=== PATIENT | male | born 1930 | race Hispanic/Latino ===

== ENCOUNTER 2017-03-09 11:59 | Emergency (ER) | payer MEDICARE ==
[2017-03-09 12:09] VITALS: BMI 21.6
[2017-03-09 12:14] VITALS: O2SAT 96
[2017-03-09] MEDS ORDERED: Bacitracin 500 Units/gm Oint Foilpak UD TOP ONE (12:24)
[2017-03-09] MEDS ORDERED: Bacitracin 500 Units/gm Oint Foilpak UD ONE (12:29)
--- NOTE | 2017-03-09 12:58 | C.PDOC ---
History Of Present Illness 86 year old patient is brought to the ED by ambulance complaining of right leg pain after he hit his leg on a treadmill just prior to arrival. Patient states he was working out at the gym on a treadmill when it became too fast for him to keep up with the pace. Patient denies any head injury, abdominal pain, numbness , weakness, abdominal pain, nausea, vomiting, chest pain, or shortness of breath. Patient states he feels fine. Time Seen by Provider: 03/09/17 12:17 Chief Complaint (Nursing): Lower Extremity Problem/Injury History Per: Patient History/Exam Limitations: no limitations Onset/Duration Of Symptoms: Mins (just prior to arrival) Current Symptoms Are (Timing): Still Present Severity: Mild Pain Scale Rating Of: 3 Recent travel outside of the [place]: No Past Medical History Reviewed: Historical Data, Nursing Documentation, Vital Signs Vital Signs: Last Vital Signs Temp 98.0 F 03/09/17 13:04 Pulse 79 03/09/17 13:04 Resp 16 03/09/17 13:04 BP 156/88 H 03/09/17 13:04 Pulse Ox 96 03/09/17 14:08 Family History: States: Unknown Family Hx - Social History Hx Alcohol Use: Yes Hx Substance Use: No - Immunization History Hx Tetanus Toxoid Vaccination: No Hx Influenza Vaccination: No Hx Pneumococcal Vaccination: No Review Of Systems Except As Marked, All Systems Reviewed And Found Negative. Constitutional: Negative for: Fever Cardiovascular: Negative for: Chest Pain Respiratory: Negative for: Shortness of Breath Gastrointestinal: Negative for: Nausea, Vomiting, Abdominal Pain Musculoskeletal: Positive for: Leg Pain (right) Neurological: Negative for: Weakness, Numbness, Other (head injury) Physical Exam - Physical Exam Appears: Non-toxic, No Acute Distress Skin: Warm, Dry Head: Atraumatic, Normacephalic Eye(s): bilateral: Normal Inspection, EOMI Ear(s): Bilateral: Other (hearing impaired) Nose: Normal Neck: Normal ROM, Supple Chest: Symmetrical Cardiovascular: Rhythm Regular Respiratory: Normal Breath Sounds, No Accessory Muscle Use Gastrointestinal/Abdominal: Soft, No Tenderness Back: Normal Inspection Extremity: Normal ROM, No Calf Tenderness, Capillary Refill (<2 seconds), No Deformity, No Swelling, Other (right lower leg: large anterior contusion with 6 cm of superficial skin avulsion; superficial abrasions to bilateral knees) Pulses: Left Dorsalis Pedis: Normal, Right Dorsalis Pedis: Normal Neurological/Psych: Oriented x3, Normal Speech, Normal Cognition, Normal Motor, Normal Sensation Gait: Steady ED Course And Treatment O2 Sat by Pulse Oximetry: 96 (RA) Pulse Ox Interpretation: Normal - Other Rad right tibia/fibula x-ray X-Ray: Interpreted by Me, Viewed By Me Interpretation: no fractures or dislocations Progress Note: Plan: -Tylenol, Bacitracin. -Right Tibia/Fibula x-ray. - Reassess and disposition. Wound was cleansed and dressed by the RN. Bacitracin was applied. Skin glue was used. On reassessment, patient is resting comfortably, and is in no acute distress. Patient is requesting to go outside to smoke a cigarette. There is no pain on ambulation. Patient was instructed to follow up with physician/clinic in 1-2 days for further evaluation. Return if symptoms worsen. Case discussed with amy Hoyos plan and discharge. Disposition - Disposition Disposition: HOME/ ROUTINE Disposition Time: 12:57 Condition: STABLE Additional Instructions: Rest, ice and elevate the area. Follow up with your doctor in 1-2 days. Return to ER if symptoms persist or worsen. Instructions: Contusion in Adults (ED) - Clinical Impression Clinical Impression: Contusion of leg - PA / PRODUCTION INTERNSHIP / Resident Statement MD/DO has reviewed & agrees with the documentation as recorded. - Scribe Statement The provider has reviewed the documentation as recorded by the Scribe Lala Solis All medical record entries made by the Scribe were at my direction and personally dictated by me. I have reviewed the chart and agree that the record accurately reflects my personal performance of the history, physical exam, medical decision making, and the department course for this patient. I have also personally directed, reviewed, and agree with the discharge instructions and disposition.
--- NOTE | 2017-03-09 13:02 | RAD ---
PROCEDURE: Radiographs of the right tibia and fibula. HISTORY: trauma COMPARISON: None available. TECHNIQUE: Frontal and lateral views obtained. FINDINGS: BONES: No acute displaced fracture. JOINT SPACES: No dislocation. OTHER FINDINGS: Soft tissues appear unremarkable. Vascular calcifications. No evidence of radiopaque foreign body. IMPRESSION: No acute displaced fracture, dislocation, or significant joint effusion identified. If symptoms persist, or if there is continued clinical concern, x-ray follow-up in 7-10 days should be considered.
[2017-03-09 13:05] VITALS: BP 156/88; PULSE 79; RESP 16; TEMP 98
== END 2017-03-09 13:05 | disposition home or self-care (01) ==
LOC: C.ER 11:59
DX: S80.11XA Contusion of right lower leg, initial encounter (principal); S80.212A Abrasion, left knee, initial encounter; S80.211A Abrasion, right knee, initial encounter; W22.8XXA Striking against or struck by other objects, initial encounter; Y93.79 Activity, other specified sports and athletics; Y92.39 Other specified sports and athletic area as the place of occurrence of the external cause

== ENCOUNTER 2017-07-21 13:27 | Emergency (ER) | payer MEDICARE ==
[2017-07-21 13:27] VITALS: BMI 21.6
[2017-07-21 13:57] VITALS: BP 175/74; PULSE 82; TEMP 98.1; O2SAT 95
--- NOTE | 2017-07-21 14:17 | C.PDOC ---
History Of Present Illness 86 y/o male brought to ED via EMS s/p falling at bank prior to arrival. As per ems patient was trying to pecan picker something from floor and fell head first to floor. At bedside patient is unsure how he fell and state he feels "great". Patient denies loc, vision changes, dizziness and is requesting immediate discharge. No other complaints at this time. - HPI Time Seen by Provider: 07/21/17 14:00 Chief Complaint (Nursing): Trauma History Per: Patient History/Exam Limitations: no limitations Onset/Duration Of Symptoms: Hrs Injury Occurred (Timing): Just Before Arrival Past Medical History Reviewed: Historical Data, Nursing Documentation, Vital Signs Vital Signs: Last Vital Signs Temp 98.1 F 07/21/17 13:39 Pulse 82 07/21/17 13:39 Resp 18 07/21/17 14:27 BP 175/74 H 07/21/17 13:39 Pulse Ox 95 07/21/17 14:29 - Medical History PMH: HTN (no meds) Surgical History: No Surg Hx Family History: States: No Known Family Hx - Social History Hx Alcohol Use: Yes (used to drink a lot) Hx Substance Use: No - Immunization History Hx Tetanus Toxoid Vaccination: No Hx Influenza Vaccination: No Hx Pneumococcal Vaccination: No Review Of Systems Except As Marked, All Systems Reviewed And Found Negative. Eyes: Negative for: Vision Change Cardiovascular: Negative for: Chest Pain Respiratory: Negative for: Shortness of Breath Gastrointestinal: Negative for: Nausea, Vomiting Skin: Negative for: Rash Neurological: Negative for: Weakness, Numbness, Headache, Dizziness Physical Exam - Physical Exam Appears: Non-toxic, No Acute Distress Skin: Normal Color, Warm, Dry, No Rash, Other (abrasion to hands ) Head: Abrasion (to forehead) Eye(s): bilateral: Normal Inspection, PERRL, EOMI Oral Mucosa: Moist Neck: Normal ROM, Supple Chest: Symmetrical Cardiovascular: Rhythm Regular, No Murmur Respiratory: Normal Breath Sounds, No Rales, No Rhonchi, No Wheezing Gastrointestinal/Abdominal: Soft, No Tenderness, No Guarding, No Rebound Extremity: Normal ROM, Capillary Refill (<2 seconds) Neurological/Psych: Oriented x3, Normal Speech, Normal Cognition, Normal Motor, Normal Sensation ED Course And Treatment O2 Sat by Pulse Oximetry: 95 (RA) Pulse Ox Interpretation: Normal Against Medical Advice - AMA Patient Left Against Medical Advice: The patient declines admission to the hospital and wishes to leave the Emergency Department. This action is against my medical advice. This decision was made with informed refusal. The patient was told that admission to the hospital is necessary. Explanation of the reasons why were discussed. The risks of leaving were explained to the patient and include, but are not limited to, worsening of known or currently unknown conditions, permanent disability and from undiagnosed or untreated conditions. The patient has the capacity to make this informed decision and understands my explanation of the current medical problem and risks of leaving. The patient voluntarily accepts these risks and signed an AMA form documenting our conversation. The patient was given the opportunity to ask questions and reconsider. The patient was encouraged to return to the Emergency Department at any time for further care. Medical Decision Making Medical Decision Making: suspectd fall/r/o syncope- labs imaging pending upon itial assessment, pt seen ambulating in er, in nad, smiling. does not want any w/u. 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 - Scribe Statement The provider has reviewed the documentation as recorded by the Krystianibrajwinder Leung All medical record entries made by the Scribrajwinder were at my direction and personally dictated by me. I have reviewed the chart and agree that the record accurately reflects my personal performance of the history, physical exam, medical decision making, and the department course for this patient. I have also personally directed, reviewed, and agree with the discharge instructions and disposition.
--- NOTE | 2017-07-21 14:18 | C.PDOC ---
- HPI Time Seen by Provider: 07/21/17 14:00 Chief Complaint (Nursing): Trauma Past Medical History Vital Signs: Last Vital Signs Temp 98.1 F 07/21/17 13:39 Pulse 82 07/21/17 13:39 Resp 12 07/21/17 13:39 BP 175/74 H 07/21/17 13:39 Pulse Ox 95 07/21/17 13:39 - Medical History PMH: HTN (no meds) Family History: States: Unknown Family Hx - Social History Hx Alcohol Use: Yes (used to drink a lot) Hx Substance Use: No - Immunization History Hx Tetanus Toxoid Vaccination: No Hx Influenza Vaccination: No Hx Pneumococcal Vaccination: No ED Course And Treatment O2 Sat by Pulse Oximetry: 95 Disposition - Disposition Disposition: AGAINST MEDICAL ADVICE Disposition Time: 14:16 Condition: UNKNOWN Instructions: Head Injury (ED), Against Medical Advice (ED) Forms: [employer] (Chinese) - Clinical Impression Clinical Impression: Fall, Head injury, Left against medical advice
[2017-07-21 14:33] VITALS: RESP 18
== END 2017-07-21 14:30 | disposition left against medical advice (07) ==
LOC: C.ER 13:27
DX: S00.81XA Abrasion of other part of head, initial encounter (principal); W18.30XA Fall on same level, unspecified, initial encounter

== ENCOUNTER 2019-03-18 04:24 | Observation (INO) | payer MEDICARE ==
[2019-03-18 04:24] VITALS: BMI 21.6
--- NOTE | 2019-03-18 04:45 | C.PDOC ---
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 Patient reports he was not feeling well after drinking some juice. Denies head injury. - HPI Chief Complaint (Nursing): Dizziness/Lightheaded History Per: Patient History/Exam Limitations: no limitations Onset/Duration Of Symptoms: Mins Injury Occurred (Timing): Just Before Arrival Recent travel outside of the [place]: No Past Medical History Reviewed: Historical Data, Nursing Documentation, Vital Signs - Medical History PMH: HTN (no meds) Family History: States: Unknown Family Hx - Social History Hx Alcohol Use: Yes (used to drink a lot) Hx Substance Use: No - Immunization History Hx Tetanus Toxoid Vaccination: No Hx Influenza Vaccination: No Hx Pneumococcal Vaccination: No Review Of Systems Constitutional: Negative for: Fever, Chills Cardiovascular: Negative for: Chest Pain Respiratory: Negative for: Cough, Shortness of Breath Gastrointestinal: Negative for: Nausea, Vomiting Neurological: Negative for: Weakness, Numbness Physical Exam - Physical Exam Appears: Non-toxic Skin: Normal Color, Warm Head: Normacephalic, Other (Small abrasion with ecchymosis to right temporal area) Eye(s): bilateral: Normal Inspection, PERRL, EOMI Oral Mucosa: Moist Neck: Normal, No Midline Cervical Tenderness, No Paracervical Tenderness, Supple Chest: Symmetrical, No Tenderness Cardiovascular: Rhythm Regular Respiratory: Normal Breath Sounds, No Rales, No Rhonchi, No Wheezing Gastrointestinal/Abdominal: Soft, No Tenderness Extremity: Normal ROM (x4) Neurological/Psych: Oriented x3, Normal Speech, Normal Motor, Normal Sensation, Other (No focal deficit) ED Course And Treatment - Laboratory Results Result Diagrams: 03/18/19 05:20 03/18/19 05:20 ECG: Interpreted By Me, Viewed By Me ECG Rhythm: Sinus Rhythm ECG Interpretation: Normal, No Acute Changes Interpretation Of ECG: NSR, normal tracings, Rate From EC NIHSS Stroke Scale - Date/Time Evaluation Performed Date Performed: 03/18/19 Time Performed: 04:45 When Was NIHSS Performed: Baseline - How Severe is the Stoke Level of Consciousness: 0=Alert LOC to Questions: 0=Both comments correct LOC to commands: 0=Obeys both correctly Best Gaze: 0=Normal Visual: 0=No visual loss Facial: 0=Normal Motor Arm - Left: 0=No drift Motor Arm - Right: 0=No drift Motor Leg - Left: 0=No drift Motor Leg - Right: 0=No drift Limb Ataxia: 0=Absent Sensory: 0=Normal Best Language: 0=No aphasia Dysarthia: 0=Normal articulation Extinction & Inattention (Neglect): 0=Normal, no object Score: 0 Disposition Discussed With : Phil Dangelo Doctor Will See Patient In The: Hospital Counseled Patient/Family Regarding: Diagnosis - Disposition Disposition: HOSPITALIZED Disposition Time: 06:43 Condition: STABLE Forms: [employer] (Greenlandic) - POA Present On Arrival: None - Clinical Impression Clinical Impression: Syncope, Dizziness - Scribe Statement The provider has reviewed the documentation as recorded by the Scribe Anibal Doe All medical record entries made by the Krystianibrajwinder were at my direction and personally dictated by me. I have reviewed the chart and agree that the record accurately reflects my personal performance of the history, physical exam, medical decision making, and the department course for this patient. I have also personally directed, reviewed, and agree with the discharge instructions and disposition.
[2019-03-18] MEDS ORDERED: Sodium Chloride 0.9% 1,000 ML IV ONE ×2 (04:58→08:30)
[2019-03-18 05:29] LABS: ALB/GLOB RATIO 1.6 (1.0-2.1); ALBUMIN 4.5 g/dL (3.5-5.0); ALT/SGPT 28 U/L (21-72); AST/SGOT 46 U/L (17-59); BLOOD UREA NITROGEN 24 mg/dL (9-20); CALCIUM 9.2 mg/dl (8.6-10.4); GFR NON-AFRICAN AMERICAN > 60
[2019-03-18 05:33] LABS: BASO # 0.1 K/uL (0.0-0.2); BASO % 1.1 % (0.0-2.0); EOS # 0.4 K/uL (0.0-0.7); EOS % 3.9 % (0.0-4.0); HEMOGLOBIN 13.3 g/dL (12.0-18.0); LYMPH # 3.6 K/uL (1.0-4.3); LYMPH % 36.6 % (20.0-40.0); MEAN CELL VOLUME 89.5 fL (80.0-94.0); MEAN CORPUSCULAR HEMOGLOBIN 29.9 pg (27.0-31.0); MEAN CORPUSCULAR HGB CONC 33.3 g/dL (33.0-37.0); MEAN PLATELET VOLUME 8.7 fL (7.2-11.7); MONO # 0.7 K/uL (0.0-0.8); MONO % 7.5 % (0.0-10.0); NEUT % 50.9 % (50.0-75.0); RBC 4.46 Mil/uL (4.40-5.90); RED CELL DISTRIBUTION WIDTH 14.1 % (11.5-14.5); WHITE BLOOD COUNT 9.8 K/uL (4.8-10.8)
[2019-03-18 07:25] LABS: SQUAMOUS EPITHIAL < 1 /hpf (0-5); URINE BILIRUBIN NEGATIVE (NEGATIVE); URINE BLOOD NEGATIVE (NEGATIVE); URINE CLARITY Clear (Clear); URINE COLOR Yellow (YELLOW); URINE GLUCOSE (UA) NORMAL (Normal); URINE LEUKOCYTE ESTERASE NEG Leu/uL (Negative); URINE PROTEIN NEGATIVE (NEGATIVE); URINE UROBILINOGEN NORMAL mg/dL (0.2-1.0)
--- NOTE | 2019-03-18 07:25 | CP.PCM.HP ---
History of Present Illness - History of Present Illness History of Present Illness: PGY1 History and physical for Dr. Cotto This is an 88 erik old male with PMH of HTN, chronic lung disease ?COPD, [place], hx of falls, who presents to the ED s/p syncopal episode with fall earlier this morning. Pt is a poor historian. Pt reports feeling dizzy, unable to describe dizziness, and began feeling as if he was falling. He fell gradually onto his right side, and states that he did lose consciousness and hit his head. He was a woken by his landlord, who entered his home due to the noise made when he fell. Pt believes that he felt dizzy because he drank some bad tomato juice. He vomited twice after regaining consciousness, containing food material without blood. Pt denies fever, chills, chest pain, sob, bowel or bladder incontinence, visual changes, abdominal pain, diarrhea, hematuria, melena, hematochezia, neck pain, headache, back pain, hip pain, difficulty swallowing, slurred speech. Endorses right ankle pain since the fall, and some epigastric uneasiness. PMD: [place] on [address] [place] [address] in PMH: as above. Denies cardiac issues of history of stents. PSH: denies Meds: Inconsistent in using; "BP med, inhaled disc for lung, baby aspirin" Allx: NKDA SHx: Lives alone. Uses cane. greater than 50 pack year history. Prior EtOH use, unable to quantify how much, quit 2 years ago. Denies illicit drug use. Present on Admission - Present on Admission Any Indicators Present on Admission: No Review of Systems - Review of Systems All systems: reviewed and no additional remarkable complaints except (as per HPI) Past Patient History - Past Social History Smoking Status: Heavy Smoker > 10 Cigarettes Daily - CARDIAC Hx Hypertension: Yes (no meds) - HEENT Hx Deafness: Yes Other/Comment: hard of hearing - PSYCHIATRIC Hx Substance Use: No - SURGICAL HISTORY Hx Surgeries: No - ANESTHESIA Hx Anesthesia: No Meds Allergies/Adverse Reactions: Allergies Allergy/AdvReac Type Severity Reaction Status Date / Time No Known Allergies Allergy Verified 03/09/17 12:09 Physical Exam - Constitutional Appears: Non-toxic, No Acute Distress - Head Exam Head Exam: NORMOCEPHALIC Additional comments: (+) right maxillary bone contusion with abrasion; no active bleeding; nontender. No step off. - Eye Exam Eye Exam: EOMI Additional comments: (+) constricted pupils, reactive to light - ENT Exam ENT Exam: Mucous Membranes Dry - Neck Exam Neck exam: Negative for: Tenderness Additional comments: no neck tenderness, FROM (-) carotid bruit - Respiratory Exam Respiratory Exam: Decreased Breath Sounds. absent: Rales, Rhonchi, Wheezes, Respiratory Distress, Stridor - Cardiovascular Exam Cardiovascular Exam: REGULAR RHYTHM, +S1, +S2. absent: Tachycardia Additional comments: (-) rubs, gallops, murmurs - GI/Abdominal Exam GI & Abdominal Exam: Normal Bowel Sounds, Soft. absent: Distended, Firm, Guarding, Rebound, Rigid, Tenderness - Extremities Exam Extremities exam: Positive for: joint swelling (right ankle tenderness to palpation, decrease ROM secondary to pain, minimal swelling, no erythema/ecchymosis), normal capillary refill, pedal pulses present. Negative for: calf tenderness, pedal edema - Back Exam Back exam: NORMAL INSPECTION. absent: CVA tenderness (L), FULL ROM, vertebral tenderness - Neurological Exam Neurological exam: Alert, CN II-XII Intact, Oriented x3 Additional comments: Sensation intact and normal bilateral upper and lower extremities 5/5/ strength in bilateral upper and lower extremities Normal babinski reflex bilaterally - Psychiatric Exam Psychiatric exam: Normal Affect, Normal Mood - Skin Skin Exam: Dry, Normal Color, Warm Results - Vital Signs Recent Vital Signs: Last Vital Signs Temp 98.1 F 03/18/19 06:54 Pulse 77 03/18/19 06:54 Resp 18 03/18/19 06:54 BP 143/65 03/18/19 06:54 Pulse Ox 97 03/18/19 06:54 - Labs Result Diagrams: 03/18/19 05:20 03/18/19 05:20 Labs: Laboratory Results - last 24 hr 03/18/19 03/18/19 05:20 05:20 WBC 9.8 RBC 4.46 Hgb 13.3 Hct 39.9 MCV 89.5 MCH 29.9 MCHC 33.3 RDW 14.1 Plt Count 221 MPV 8.7 Neut % (Auto) 50.9 Lymph % (Auto) 36.6 [place] % (Auto) 7.5 Eos % (Auto) 3.9 Baso % (Auto) 1.1 Neut # (Auto) 5.0 Lymph # (Auto) 3.6 [place] # (Auto) 0.7 Eos # (Auto) 0.4 Baso # (Auto) 0.1 Sodium 138 Potassium 4.1 Chloride 102 Carbon Dioxide 27 Anion Gap 13 BUN 24 H Creatinine 1.0 Est GFR ( Amer) > 60 Est GFR (Non-Af Amer) > 60 Random Glucose 156 H Calcium 9.2 Total Bilirubin 0.3 AST 46 ALT 28 Alkaline Phosphatase 101 Troponin I 0.0820 Total Protein 7.2 Albumin 4.5 Globulin 2.7 Albumin/Globulin Ratio 1.6 Assessment & Plan - Assessment and Plan (Free Text) Assessment: This is an 88 erik old male with PMH of HTN, chronic lung disease (?COPD), [place], hx of falls, who presents to the ED s/p sycnopal episode with fall. Plan: Syncopal episode S/p fall Head CT prelim shows no acute intracranial abnormality. Chronic microvascular ischemic changes. Sinus mucosal disease. EKG shows NSR; no acute STTW changes Troponin x 1 is 0.0820; will trend x2 q6h Place on tele monitor UA is normal Fall precautions Neurochecks q4h F/u carotid doppler, echocardiogram F/u UDS F/u right ankle x-ray Decreased PO intake Cyber Special Agent referral NS at 50 mL/hr due to dehydration and poor PO intake Hx of HTN NO medication at this time due to syncopal episode ASA 81 mg PO daily F/u lipid panel, HgbA1c ?COPD CXR shows Biapical pleural thickening with upper lobe granulomatous changes. Mild diffuse increased interstitial lung markings. Mild patchy increased markings at the lung bases. Small nodular density at the right costophrenic angle may represent confluence of shadows with ribs and vessels. Small nodular density at the left lung base may represent vessel on end. Bilateral hilar prominence. Duones Q6 PRN sob PPx: Pepcid 20 mg PO daily SCDs, Lovenox 40 mg SC daily HHD, mechanicaly chopped PT/OT Palliative care for POLST SW/CM for frequent falls Case discussed with Dr. Yadiel Chandler PGY1
--- NOTE | 2019-03-18 08:28 | CT ---
Date of service: 03/18/2019 PROCEDURE: CT HEAD WITHOUT CONTRAST. HISTORY: Headache COMPARISON: None available. TECHNIQUE: Axial computed tomography images were obtained through the head/brain without intravenous contrast. Radiation dose: Total exam DLP = 955.64 mGy-cm. This CT exam was performed using one or more of the following dose reduction techniques: Automated exposure control, adjustment of the mA and/or kV according to patient size, and/or use of iterative reconstruction technique. FINDINGS: HEMORRHAGE: No intracranial hemorrhage. BRAIN: No mass effect or edema. Scattered focal lucencies in the subcortical and periventricular white matter suggestive for chronic microvascular ischemic change. Diffuse generalized parenchymal atrophy. Punctate right basal ganglia calcification. VENTRICLES: Unremarkable. No hydrocephalus. CALVARIUM: Unremarkable. PARANASAL SINUSES: Moderate mucosal thickening of the ethmoid air cells. MASTOID AIR CELLS: Unremarkable as visualized. No inflammatory changes. OTHER FINDINGS: Intracranial arterial calcifications. IMPRESSION: No acute intracranial abnormality. Chronic microvascular ischemic changes. Sinus mucosal disease. If symptoms persists, consider correlation with MRI. A preliminary report was generated at 6:35 a.m. on 03/18/[address] Ethan Marquez from [email or web address].
--- NOTE | 2019-03-18 08:55 | RAD ---
Chest x-ray single frontal view HISTORY: Syncope. COMPARISON: 03/18/2019 FINDINGS: Biapical pleural thickening with upper lobe granulomatous changes. Mild diffuse increased interstitial lung markings. Mild patchy increased markings at the lung bases. Small nodular density at the right costophrenic angle may represent confluence of shadows with ribs and vessels. Small nodular density at the left lung base may represent vessel on end. Bilateral hilar prominence. Tortuous aorta. Heart size within normal limits. Degenerative changes in the spine and shoulders. IMPRESSION: Biapical pleural thickening with upper lobe granulomatous changes. Mild diffuse increased interstitial lung markings. Mild patchy increased markings at the lung bases. Small nodular density at the right costophrenic angle may represent confluence of shadows with ribs and vessels. Small nodular density at the left lung base may represent vessel on end. Bilateral hilar prominence.
[2019-03-18] MEDS ORDERED: Albuterol-Ipratrop 3 mg / 0.5 (3 ml) UD INH PRN (09:00)
[2019-03-18] MEDS ORDERED: Enoxaparin 40 mg Syringe SC SCH (10:00)
--- NOTE | 2019-03-18 10:59 | RAD ---
Date of service: 03/18/2019 PROCEDURE: Right Ankle Radiographs. HISTORY: s/p fall, pain and swelling COMPARISON: None available. TECHNIQUE: 3 views obtained. FINDINGS: BONES: No fracture. Plantar calcaneal spur noted. JOINTS: Normal. No osteoarthritis. Ankle mortise maintained. Talar dome intact SOFT TISSUES: Normal. OTHER FINDINGS: None. IMPRESSION: Plantar calcaneal spur. No acute fracture.
[2019-03-18 11:09] LABS: BARBITURATES, UR NEGATIVE (NEGATIVE); BENZODIAZEPINES, UR NEGATIVE (NEGATIVE); OPIATES, UR NEGATIVE (NEGATIVE); PHENCYCLIDINE, UR NEGATIVE (NEGATIVE)
[2019-03-18 11:58] LABS: HDL CHOLESTEROL 58 mg/dL (30-70)
[2019-03-18 12:06] VITALS: BP 134/71; PULSE 72; RESP 20; TEMP 98.1; O2SAT 96
[2019-03-18 12:10] LABS: LDL CHOLESTEROL 84 mg/dL (0-129)
[2019-03-18 12:12] LABS: CK-MB 2.88 ng/mL (0.0-3.38)
--- NOTE | 2019-03-18 12:21 | VASCLAB ---
Date of service: 03/18/2019 PROCEDURE: Carotid Duplex Exam. HISTORY: DIZZINESS COMPARISON: None available. TECHNIQUE: Grayscale and duplex Doppler evaluation of the cervical carotid and vertebral arteries were performed. The common carotid, carotid bifurcations and cervical Internal Carotid Artery (ICA) and proximal External Carotid Artery (ECA) were evaluated. The vertebral arteries were evaluated for gross patency and flow direction. Report prepared by MIRANDA Hester FINDINGS: RIGHT CAROTID ARTERIES: 1. Common Carotid Artery: No significant focal plaque formation of the right common carotid artery. Maximum Peak Systolic velocity: 117 cm/sec: End-diastolic velocity 16 cm/sec. 2. Carotid Bifurcation: plaque formation. Maximum Peak Systolic velocity: 72 cm/sec: End-diastolic velocity 11 cm/sec. 3. Internal Carotid Artery: Plaque description: 3.1. Proximal Segment: Peak systolic velocity 53 cm/sec: End-diastolic velocity 10 cm/sec - % stenosis 0-15% 3.2. Middle Segment: Peak systolic velocity 71 cm/sec: End-diastolic velocity 18 cm/sec - % stenosis 0-15% 3.3. Distal Segment: Peak systolic velocity 80 cm/sec: End-diastolic velocity 16 cm/sec - % stenosis 0-15% 4. External Carotid Artery: No significant focal plaque formation. Peak systolic velocity 131 cm/sec 5. ICA/CCA Ratio: 0.8 LEFT CAROTID ARTERIES: 1. Common Carotid Artery: No significant focal plaque formation of the left common carotid artery. Maximum Peak Systolic velocity: 116 cm/sec: End-diastolic velocity 14 cm/sec. 2. Carotid Bifurcation: plaque formation. Maximum Peak Systolic velocity: 76 cm/sec: End-diastolic velocity 0 cm/sec. 3. Internal Carotid Artery: Plaque description: 3.1. Proximal Segment: Peak systolic velocity 73 cm/sec: End-diastolic velocity 18 cm/sec - % stenosis 0-15% 3.2. Middle Segment: Peak systolic velocity 75 cm/sec: End-diastolic velocity 18 cm/sec - % stenosis 0-15% 3.3. Distal Segment: Peak systolic velocity 92 cm/sec: End-diastolic velocity 20 cm/sec - % stenosis 0-15% 4. External Carotid Artery: No significant focal plaque formation. Peak systolic velocity 146 cm/sec 5. ICA/CCA Ratio: 0.9 VERTEBRAL ARTERIES: 1. Right Vertebral Artery: The right vertebral artery flow direction is antegrade. 2. Left Vertebral Artery: The left vertebral artery flow direction is antegrade. OTHER FINDINGS: 1. No atherosclerotic calcification present IMPRESSION: RIGHT: Duplex scan does not suggest hemodynamically significant stenosis of the right extracranial carotid arteries. LEFT: Duplex scan does not suggest hemodynamically significant stenosis of the left extracranial carotid arteries.
--- NOTE | 2019-03-18 12:25 | PCM.PCON ---
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 Patient denied head injury. Patient feels, tomato juice did not agree with him and made him sick. In ED, patient complained of dizziness and light headedness. CT had negative acute findings. Right ankle bruised. X Ray right ankle done today, results pending. Patient denies fever, chills or pain to affected area. PMH: HTN, takes no meds for it, [place] Soc. Hx: lives at home with significant other, used to drink a lo, still smokes > 10 cigarettes a day, gambles, travels to [place] for it, daughter lives in [place]. Hx: father from [place] Review of Systems - Constitutional Constitutional: absent: As Per HPI, Anorexia, Chills, Daytime Sleepiness, Excessive Sweating, Fatigue, Fever, Frequent Falls, Headache, Increased Appetite, Lethargy, Malaise, Night Sweats, Snoring, Sleep Apnea, Weight Gain, Weight Loss, Weakness, Other - EENT Eyes: absent: As Per HPI, Blind Spots, Blurred Vision, Change in Vision, Decreased Night Vision, Diplopia, Discharge, Dry Eye, Exophthalmos, Floaters, Irritation, Itchy Eyes, Loss of Peripheral Vision, Pain, Photophobia, Requires Corrective Lenses, Sees Flashes, Spots in Vision, Tunnel Vision, Other Visual Disturbances, Loss of Vision, Other Ears: Abnormal Hearing Nose/Mouth/Throat: absent: As Per HPI, Epistaxis, Nasal Congestion, Nasal Discharge, Nasal Obstruction, Nasal Trauma, Nose Pain, Post Nasal Drip, Sinus Pain, Sinus Pressure, Bleeding Gums, Change in Voice, Dental Pain, Dry Mouth, Dysphagia, Halitosis, Hoarsness, Lip Swelling, Mouth Lesions, Mouth Pain, Odynophagia, Sore Throat, Throat Swelling, Tongue Swelling, Facial Pain, Neck Pain, Neck Mass, Other - Cardiovascular Cardiovascular: Dyspnea on Exertion - Respiratory Respiratory: Dyspnea on Exertion, Chest Congestion, Excessive Mucous Production - Gastrointestinal Gastrointestinal: absent: As Per HPI, Abdominal Pain, Belching, Bloating, Change in Bowel Habits, Change in Stool Character, Coffee Ground Emesis, Constipation, Cramping, Diarrhea, Dyspepsia, Dysphagia, Early Satiety, Excessive Flatus, Fecal Incontinence, Heartburn, Hematemesis, Hematochezia, Loose Stools, Melena, Nausea, Odynophagia, Temesmus, Vomiting, Other - Genitourinary Genitourinary: absent: As Per HPI, Change in Urinary Stream, Difficulty Urinating, Dysuria, Flank Pain, Hematuria, Pyuria, Nocturia, Urinary Incontinence, Urinary Frequency, Urinary Hesitance, Urinary Urgency, Voiding Freq/Small Amts, Freq UTI, Hx Renal/Bladder Calculi, Hx /Renal Surgery, Bladder Distension, Other - Musculoskeletal Musculoskeletal: Limited Range of Motion - Integumentary Integumentary: absent: As Per HPI, Acne, Alopecia, Bleeding Lesions, Change in Hair, Change in Nails, Change in Pigmentation, Changing Lesions, Dry Skin, Erythema, Furuncle, Hirsutism, Lesions, New Lesions, Non-Healing Lesions, Photosensitivity, Pruritus, Rash, Skin Pain, Skin Ulcer, Sores, Striae, Swelling, Unusual Bruising, Wounds, Jaundice, Other - Neurological Neurological: Abnormal Hearing - Psychiatric Psychiatric: absent: As Per HPI, Abnormal Sleep Pattern, Anhedonia, Anxiety, Auditory Hallucinations, Behavioral Changes, Change in Appetite, Change in Libido, Confusion, Depression, Difficulty Concentrating, Hallucinations, Homicidal Ideation, Hopelessness, Irritability, Memory Loss, Mood Swings, Panic Attacks, Paranoia, Suicidal Ideation, Visual Hallucinations, Tactile Hallucinations, Other - Endocrine Endocrine: absent: As Per HPI, Change in Body Appearance, Change in Libido, Cold Intolorance, Deepening of Voice, Excessive Sweating, Fatigue, Flushing, Heat Intolorance, Increase in Ring/Shoe/Hat Size, Palpitations, Polydipsia, Polyphagia, Polyuria, Other - Hematologic/Lymphatic Hematologic: absent: As Per HPI, Easy Bleeding, Easy Bruising, Lymphadenopathy, Other Physical Exam - Constitutional Appears: No Acute Distress - Head Exam Head Exam: ATRAUMATIC, NORMAL INSPECTION, NORMOCEPHALIC - Eye Exam Eye Exam: EOMI, Normal appearance, PERRL Pupil Exam: NORMAL ACCOMODATION, PERRL - ENT Exam ENT Exam: Mucous Membranes Moist, Normal Exam - Neck Exam Neck exam: Positive for: Normal Inspection - Respiratory Exam Respiratory Exam: Decreased Breath Sounds, Rhonchi, NORMAL BREATHING PATTERN - Cardiovascular Exam Cardiovascular Exam: Tachycardia, REGULAR RHYTHM - GI/Abdominal Exam GI & Abdominal Exam: Normal Bowel Sounds, Soft - Rectal Exam Rectal Exam: Deferred - Exam Exam: NORMAL INSPECTION - Extremities Exam Additional comments: right ankle swollen with bruise - Back Exam Back exam: NORMAL INSPECTION - Neurological Exam Neurological exam: Alert, Oriented x3 - Psychiatric Exam Psychiatric exam: Normal Affect, Normal Mood - Skin Skin Exam: Dry, Normal Color, Warm Palliative Care Assessment - Modified MRC Dyspnea Scale Modified MRC Dyspnea Scale: Not troubled by breathlessness except on strenous exercise Grade: 1 - Pain Scale Pain Score: 0 Pain Scale Used: Numeric - Pain Description Aggravating Factors: Changing Position - Rodney Scale Sensory Perception: No Impairment Moisture: Rarely Moist Activity: Bedfast Mobility: Slightly Impaired Nutrition: Adequate Friction & Shear: No Apparent Problem Total Score - Skin Risk Assessment: 18 - Psychosocial Distress Patient screened for psychosocial distress: Yes Psychosocial Intervention(s): Denies psychosocial distress Outcome: Other (No distress noted) Palliative Care - Goals Treatment Goal(s): Alleviate symptoms End of life care discussed: Yes End of life discussion: Goals of care discussed. patient is heard of hearing, able to read lips and written words. Communication supported by writing. Patient expressed wish to return home. he misses his independent life style. Patient feels there is nothing wrong with him. He lives with lady, significant other at home, and enjoys gambling. Code status discussed. I wrote about DNR/DNI for patient to read. Patient acknowledged it and stated that he valued quality of life very much. If his hear t stops or his breathing should get difficult, requiring MV support, patient would want to be allowed natural . POLST introduced. Patient signed DNR/DNI. This was shared with Doctor Yadiel and nursing. - Plan Interdisciplinary involved: Nurse, Physician Discharge planning: Home Assessment & Plan - Assessment and Plan (Free Text) Assessment: Impression * S/P fall at home * Right ankle edema, limited ROM * Moist cough * Hard of hearing * Requests DNR/DNI * Prefers to be discharged home when stable Suggestion * Elevate right leg while in bed * Promote safety * Mucinex DM daily * Instruct on getting hearing aids as an outpatient * DNR/DNI, POLST on chart * Home discharge planing * PT evaluation before discharge; consider home PT if needed Palliative care will sign of at this time. Advance Care planing 50 min.
--- NOTE | 2019-03-18 13:49 | CP.PCM.DIS ---
Provider - Provider Date of Admission: 03/18/19 06:50 Attending physician: Phil Dangelo MD Consults: 03/18/19 08:05 Palliative Care Consult Routine Comment: Consulting Provider: Alissa Landa Physician Instructions: Reason For Exam: creation of polst, goals of care, lives alone Social Work Referral Routine Comment: lives alone daughter lives in [place] Physician Instructions: Reason For Exam: Keely score is 8 Medical Device Sales [Case Management Referral] Routine Comment: Physician Instructions: Reason For Exam: lives alone Reason for Referral: Discharge Planning 03/18/19 09:01 Nursing Referral for Palliative Care Routine Comment: Physician Instructions: Reason For Exam: Pt lives alone Time Spent in preparation of Discharge (in minutes): 35 Diagnosis - Discharge Diagnosis (1) Dizziness Status: Resolved (2) Syncope Status: Acute (3) Fall Status: Acute (4) History of hypertension Status: Chronic (5) History of COPD Status: Chronic (6) Ankle contusion Status: Acute Hospital Course - Lab Results Lab Results: Most Recent Lab Values WBC 9.8 K/uL (4.8-10.8) 03/18/19 05:20 RBC 4.46 Mil/uL (4.40-5.90) 03/18/19 05:20 Hgb 13.3 g/dL (12.0-18.0) 03/18/19 05:20 Hct 39.9 % (35.0-51.0) 03/18/19 05:20 MCV 89.5 fL (80.0-94.0) 03/18/19 05:20 MCH 29.9 pg (27.0-31.0) 03/18/19 05:20 MCHC 33.3 g/dL (33.0-37.0) 03/18/19 05:20 RDW 14.1 % (11.5-14.5) 03/18/19 05:20 Plt Count 221 K/uL (130-400) 03/18/19 05:20 MPV 8.7 fL (7.2-11.7) 03/18/19 05:20 Neut % (Auto) 50.9 % (50.0-75.0) 03/18/19 05:20 Lymph % (Auto) 36.6 % (20.0-40.0) 03/18/19 05:20 [place] % (Auto) 7.5 % (0.0-10.0) 03/18/19 05:20 Eos % (Auto) 3.9 % (0.0-4.0) 03/18/19 05:20 Baso % (Auto) 1.1 % (0.0-2.0) 03/18/19 05:20 Neut # (Auto) 5.0 K/uL (1.8-7.0) 03/18/19 05:20 Lymph # (Auto) 3.6 K/uL (1.0-4.3) 03/18/19 05:20 [place] # (Auto) 0.7 K/uL (0.0-0.8) 03/18/19 05:20 Eos # (Auto) 0.4 K/uL (0.0-0.7) 03/18/19 05:20 Baso # (Auto) 0.1 K/uL (0.0-0.2) 03/18/19 05:20 Sodium 138 mmol/L (132-148) 03/18/19 05:20 Potassium 4.1 mmol/L (3.6-5.2) 03/18/19 05:20 Chloride 102 mmol/L (98-107) 03/18/19 05:20 Carbon Dioxide 27 mmol/L (22-30) 03/18/19 05:20 Anion Gap 13 (10-20) 03/18/19 05:20 BUN 24 mg/dL (9-20) H 03/18/19 05:20 Creatinine 1.0 mg/dL (0.8-1.5) 03/18/19 05:20 Est GFR ( Amer) > 60 03/18/19 05:20 Est GFR (Non-Af Amer) > 60 03/18/19 05:20 Random Glucose 156 mg/dL (75-110) H 03/18/19 05:20 Hemoglobin A1c 6.5 % (4.2-6.5) 03/18/19 10:59 Calcium 9.2 mg/dl (8.6-10.4) 03/18/19 05:20 Total Bilirubin 0.3 mg/dL (0.2-1.3) 03/18/19 05:20 AST 46 U/L (17-59) 03/18/19 05:20 ALT 28 U/L (21-72) 03/18/19 05:20 Alkaline Phosphatase 101 U/L (38-126) 03/18/19 05:20 Total Creatine Kinase 80 U/L (55-170) 03/18/19 10:59 CK-MB (Mass) 2.88 ng/mL (0.0-3.38) 03/18/19 10:59 Troponin I < 0.0120 ng/mL (0.00-0.120) 03/18/19 10:59 Total Protein 7.2 g/dL (6.3-8.3) 03/18/19 05:20 Albumin 4.5 g/dL (3.5-5.0) 03/18/19 05:20 Globulin 2.7 gm/dL (2.2-3.9) 03/18/19 05:20 Albumin/Globulin Ratio 1.6 (1.0-2.1) 03/18/19 05:20 Triglycerides 31 mg/dL (0-149) 03/18/19 10:59 Cholesterol 154 mg/dL (0-199) 03/18/19 10:59 LDL Cholesterol Direct 84 mg/dL (0-129) 03/18/19 10:59 HDL Cholesterol 58 mg/dL (30-70) 03/18/19 10:59 Urine Color Yellow (YELLOW) 03/18/19 06:40 Urine Clarity Clear (Clear) 03/18/19 06:40 Urine pH 7.0 (5.0-8.0) 03/18/19 06:40 Ur Specific [place] 1.012 (1.003-1.030) 03/18/19 06:40 Urine Protein Negative mg/dL (NEGATIVE) 03/18/19 06:40 Urine Glucose (UA) Normal mg/dL (Normal) 03/18/19 06:40 Urine Ketones Negative mg/dL (NEGATIVE) 03/18/19 06:40 Urine Blood Negative (NEGATIVE) 03/18/19 06:40 Urine Nitrate Negative (NEGATIVE) 03/18/19 06:40 Urine Bilirubin Negative (NEGATIVE) 03/18/19 06:40 Urine Urobilinogen Normal mg/dL (0.2-1.0) 03/18/19 06:40 Ur Leukocyte Esterase Neg Jonny/uL (Negative) 03/18/19 06:40 Urine WBC (Auto) 1 /hpf (0-5) 03/18/19 06:40 Urine RBC (Auto) < 1 /hpf (0-3) 03/18/19 06:40 Ur Squamous Epith Cells < 1 /hpf (0-5) 03/18/19 06:40 Urine Opiates Screen Negative (NEGATIVE) 03/18/19 10:32 Urine Methadone Screen Negative (NEGATIVE) 03/18/19 10:32 Ur Barbiturates Screen Negative (NEGATIVE) 03/18/19 10:32 Ur Phencyclidine Scrn Negative (NEGATIVE) 03/18/19 10:32 Ur Amphetamines Screen Negative (NEGATIVE) 03/18/19 10:32 U Benzodiazepines Scrn Negative (NEGATIVE) 03/18/19 10:32 U Oth Cocaine Metabols Negative (NEGATIVE) 03/18/19 10:32 U Cannabinoids Screen Negative (NEGATIVE) 03/18/19 10:32 - Hospital Course Hospital Course: On admission: This is an 88 erik old male with PMH of HTN, chronic lung disease ?COPD, [place], hx of falls, who presents to the ED s/p syncopal episode with fall earlier this morning. Pt is a poor historian. Pt reports feeling dizzy, unable to describe dizziness, and began feeling as if he was falling. He fell gradually onto his right side, and states that he did lose consciousness and hit his head. He was awoken by his landlord, who entered his home due to the noise made when he fell. Pt believes that he felt dizzy because he drank some bad tomato juice. He vomited twice after regaining consciousness, containing food material without blood. Pt denies fever, chills, chest pain, sob, bowel or bladder incontinence, visual changes, abdominal pain, diarrhea, hematuria, melena, hematochezia, neck pain, headache, back pain, hip pain, difficulty swallowing, slurred speech. Endorses right ankle pain since the fall, and some epigastric uneasiness. Hospital course: Head CT showed no acute intracranial abnormality. Chronic microvascular ischemic changes. Sinus mucosal disease. EKG shows NSR, no acute STTW changes. Troponin x2 are normal. Lipids within normal limits. Bilateral carotid dopplers shows no hemodynamically significant stenosis. Ankle x-ray shows no fracture, calcaneal spur. Palliative care consulted and placed DNR/DNI as per pt's wishes. Pt no longer feels dizzy and would like to go home. Pt denies fever, chills, c hest pain, sob, bowel or bladder incontinence, visual changes, abdominal pain, diarrhea, hematuria, melena, hematochezia, neck pain, headache, back pain, hip pain, difficulty swallowing, slurred speech, difficulty ambulating. Pt will be discharged home. he does not live alone. As per CM who poke with pt's sister, he lives with friend and landlord who take care of him when needed. This is a summary of the hospital course. Please see EMR for full details. Discharge Exam - Additional Findings Additional findings: - Constitutional Appears: Non-toxic, No Acute Distress - Head Exam Head Exam: NORMOCEPHALIC Additional comments: (+) right maxillary bone contusion with abrasion; no active bleeding; nontender. No step off. - Eye Exam Eye Exam: EOMI Additional comments: (+) constricted pupils, reactive to light - ENT Exam ENT Exam: Mucous Membranes Moist - Neck Exam Neck exam: Negative for: Tenderness Additional comments: no neck tenderness, FROM (-) carotid bruit - Respiratory Exam Respiratory Exam: Decreased Breath Sounds. absent: Rales, Rhonchi, Wheezes, Respiratory Distress, Stridor - Cardiovascular Exam Cardiovascular Exam: REGULAR RHYTHM, +S1, +S2. absent: Tachycardia Additional comments: (-) rubs, gallops, murmurs - GI/Abdominal Exam GI & Abdominal Exam: Normal Bowel Sounds, Soft. absent: Distended, Firm, Guarding, Rebound, Rigid, Tenderness - Extremities Exam Extremities exam: Positive for: joint swelling (right ankle tenderness to palpation, decreased ROM secondary to pain, minimal swelling, no erythema/ecchymosis), normal capillary refill, pedal pulses present. Negative for: calf tenderness, pedal edema - Back Exam Back exam: NORMAL INSPECTION. absent: CVA tenderness (L), FULL ROM, vertebral tenderness - Neurological Exam Neurological exam: Alert, CN II-XII Intact, Oriented x3 Additional comments: Sensation intact and normal bilateral upper and lower extremities 5/5/ strength in bilateral upper and lower extremities Normal babinski reflex bilaterally - Psychiatric Exam Psychiatric exam: Normal Affect, Normal Mood - Skin Skin Exam: Dry, Normal Color, Warm Discharge Plan - Follow Up Plan Condition: STABLE Disposition: HOME/ ROUTINE Additional Instructions: Pt is medically stable for discharge home. Pt should resume home medications as previously prescribed. Pt should follow up with Dr. Phipps within 1 week of discharge home. Should symptoms worsen, please go to the nearest emergency department for further evaluation. Instructions explained to the pt, who understands and agrees with discharge plan. Referrals: [facility] [Outside] Janie Phipps MD [Medical Doctor] -
--- NOTE | 2019-03-18 16:53 | CARD ---
APPROVED REPORT Date of service: 03/18/2019 EKG Measurement Heart [id number] <Conclusion> Normal sinus rhythm Normal ECG
--- NOTE | 2019-03-19 04:52 | CARD ---
APPROVED REPORT Date of service: 03/18/2019 EXAM: Two-dimensional and M-mode echocardiogram with Doppler and color Doppler. Other Information Quality : Technically LimitedRhythm : Technically limited study due to uncooperative pt INDICATION Syncope smoker RISK FACTORS Hypertension 2D DIMENSIONS IVSd0.8 (0.7-1.1cm)LVDd4.1 (3.9-5.9cm) PWd0.9 (0.7-1.1cm)LA [id number] (18-58mL) LVDs3.0 (2.5-4.0cm)FS (%) 27.9 % LVEF (%)65.0 (>50%)LVEF ([place])70 % IVC0.00 cm M-Mode DIMENSIONS TAPSE22.78 cm Mitral Valve MV E Spkfcluw26.5cm/sMV A Ltyafmpm67.8cm/sE/A ratio1.0 TDI Lateral E' Peak V8.87cm/sMedial E' Peak V7.71cm/sE/Lateral E'10.8 E/Medial E'12.4 Tricuspid Valve TR Peak Hpurqcne233fo/sTR Peak [id number] LEFT VENTRICLE The left ventricle is normal size. There is normal left ventricular wall thickness. Left ventricle systolic function is normal. The Ejection Fraction is 65-70%. There is normal LV segmental wall motion. The left ventricular diastolic function is normal. RIGHT VENTRICLE The right ventricle is normal size. There is normal right ventricular wall thickness. The right ventricular systolic function is normal. ATRIA The left atrium size is normal. The right atrium size is normal. The interatrial septum is intact with no evidence for an atrial septal defect. AORTIC VALVE The aortic valve is normal in structure. No aortic regurgitation is present. There is no aortic valvular stenosis. MITRAL VALVE The mitral valve is normal in structure. There is no evidence of mitral valve prolapse. There is no mitral valve stenosis. Mitral regurgitation is mild. TRICUSPID VALVE The tricuspid valve is normal in structure. There is mild tricuspid regurgitation. Right ventricular systolic pressure is estimated at less than 30 mmHg. There is no pulmonary hypertension. PULMONIC VALVE The pulmonic valve is not well visualized. There is no pulmonic valvular regurgitation. GREAT VESSELS The aortic root is normal in size. PERICARDIAL EFFUSION There is no significant pericardial effusion. <Conclusion> Left ventricle systolic function is normal. The Ejection Fraction is 65-70%. No aortic regurgitation is present. Mitral regurgitation is mild. There is mild tricuspid regurgitation. There is no pulmonary hypertension. There is no pulmonic valvular regurgitation.
== END 2019-03-18 15:30 | disposition home or self-care (01) ==
LOC: C.ER 04:24 → C.9I 06:50
PROVIDERS: ADMIT Emergency Medicine; ATTEND Emergency Medicine
DX: R55 Syncope and collapse (principal); I10 Essential (primary) hypertension; H91.90 Unspecified hearing loss, unspecified ear; R42 Dizziness and giddiness; S90.00XA Contusion of unspecified ankle, initial encounter; W19.XXXA Unspecified fall, initial encounter; I65.29 Occlusion and stenosis of unspecified carotid artery; F17.210 Nicotine dependence, cigarettes, uncomplicated; Z66 Do not resuscitate
CPT/HCPCS: 70450; 71045; 73610; 80053; 80061; 81001; 83036; 84484; 85025; 87081; 93005; 93306; 93880; G0378; G0480; J1650; J7030